=== PATIENT | female | born 1970 | race Caucasian/White ===

== ENCOUNTER 2017-02-17 11:52 | Day surgery (SDC) | payer OTHER ==
[~2017-02-17] VITALS: Ht 157.5 cm; Wt 55.7 kg
[~2017-02-17 11:52] MED LIST: ADVIL COLD &1 TABLET PO; ADVIL,NUPRIN,M200 MG PO; ALEVE220 MG PO; BACTRIM,SEPT1 TABLET PO; DIAZEPAM5 MG PO; ERGOCALCIF50000 UNIT PO; FLEXERIL5 MG PO; FOLIC ACID0.4 MG PO; HYDROMORPHONE HC2 MG PO; KELP150 MC1 PO; PERCOCET 5/31 TABLET PO; TYLENOL EXTRA500 MG PO; VITAMIN B-125000 MC1 PO; VITAMIN B-6100 MG PO; ZENPEP DR 5,001 EACH PO; ZOLOFT100 MG PO; [UNRECOGNIZED DRUG - OTHER] PO; [UNRECOGNIZED DRUG - REMARK] PO
[2017-02-17 12:24] VITALS: BP 148/99
[2017-02-17 15:25] VITALS: BP 127/80
[2017-02-17 15:57] VITALS: BP 129/79
== END 2017-02-17 16:00 | disposition home or self-care (01) ==
LOC: SDC 11:52
PROC: 01N50ZZ Release Median Nerve, Open Approach (ICD-10-PCS; principal; 2017-02-17)
DX: G56.02 Carpal tunnel syndrome, left upper limb (principal); E05.90 Thyrotoxicosis, unspecified without thyrotoxic crisis or storm; G95.9 Disease of spinal cord, unspecified; G82.20 Paraplegia, unspecified; F17.200 Nicotine dependence, unspecified, uncomplicated; Z98.1 Arthrodesis status
CPT/HCPCS: J0690; J1885; J2250; J2405; J3010

== ENCOUNTER 2017-10-12 21:45 | Inpatient (IN) | payer OTHER ==
[~2017-10-12] VITALS: Ht 157.5 cm; Wt 57.9 kg
[~2017-10-12 21:45] MED LIST changes: +LIORESAL10 MG PO; +OMEPRAZOLE40 M1 PO
[2017-10-13] MEDS ORDERED: ZENPEP DR 5,001 EACH PO (12:45)
[2017-10-13 12:46] VITALS: BP 111/74
[2017-10-13 22:10] VITALS: BP 136/78
[2017-10-13 22:45] VITALS: BP 136/78
[2017-10-14 03:55] VITALS: BP 104/59
[2017-10-14 08:20] VITALS: BP 103/72
[2017-10-14 15:35] VITALS: BP 100/67
[2017-10-14 22:18] VITALS: BP 110/76
[2017-10-14 23:01] VITALS: BP 126/70
[2017-10-15 05:54] VITALS: BP 130/83
[2017-10-15 08:08] VITALS: BP 126/82
[2017-10-15 16:00] VITALS: BP 119/76
[2017-10-15] MEDS ORDERED: PERCOCET 5/31 TABLET PO (16:18)
[2017-10-15] MEDS ORDERED: DIAZEPAM5 MG PO (16:18)
[2017-10-15] MEDS ORDERED: TIZANIDINE HCL4 MG PO (16:18)
== END 2017-10-15 22:27 | disposition home or self-care (01) | DRG 472 ==
LOC: ENRESERV 21:45 → 2SOUTH 10-13 10:39 → SDC 10-13 15:32 → EDSTATUS 10-13 15:32 → 2SOUTH 10-13 15:33 → ENRESERV 10-13 20:45 → 3EAST 10-13 21:55
DX: T84.216A Breakdown (mechanical) of internal fixation device of vertebrae, initial encounter (principal); M47.12 Other spondylosis with myelopathy, cervical region; M48.02 Spinal stenosis, cervical region; M54.2 Cervicalgia; M62.838 Other muscle spasm; F17.200 Nicotine dependence, unspecified, uncomplicated; F12.10 Cannabis abuse, uncomplicated; M85.80 Other specified disorders of bone density and structure, unspecified site; Z91.19 Patient's noncompliance with other medical treatment and regimen; M40.202 Unspecified kyphosis, cervical region; S13.160A Subluxation of C5/C6 cervical vertebrae, initial encounter
CPT/HCPCS: 72020; 72040; 76000; 86850; 86900; 86901; 95938; C1713; C1768; J0690; J1170; J2250; J2405; J2710; J3010; J3370; J3480